=== PATIENT | female | born 1975 | race Caucasian/White ===

== ENCOUNTER 2021-11-10 20:17 | Emergency (ER) | payer OTHER ==
[2021-11-10 20:28] VITALS: BMI 41.1
[2021-11-10] MEDS ORDERED: SODIUM CHLORIDE 0.9% 500 ML INFUS.BAG IV ONE (20:58)
[2021-11-10] MEDS ORDERED: ONDANSETRON 4 MG/2 ML VIAL IVPUSH ONE (20:58)
[2021-11-10] MEDS ORDERED: FAMOTIDINE 20 MG/50 ML IVPB 20 MG/50 ML MG IVPB ONE ×2 (20:59→21:04)
[2021-11-10] MEDS ORDERED: ONDANSETRON 4 MG/2 ML VIAL ONE (21:04)
[2021-11-10] MEDS ORDERED: morphine CARPU-JECT 2 MG/1 ML DISP.SYRIN IVPUSH ONE (21:10)
[2021-11-10 21:36] LABS: BASO % 0.3 % (0-2.0); EOS % 1.2 % (0-4.5); HEMATOCRIT 39.7 % (32.4-45.2); HEMOGLOBIN 12.9 GM/dL (10.7-15.3); LYMPH % 23.8 % (8-40); MCH 26.7 pg (25.7-33.7); MCHC 32.5 g/dl (32.0-36.0); MEAN CELL VOLUME 82.1 fl (80-96); MEAN PLT VOLUME 7.7 fl (7.5-11.1); MONO % 6.5 % (3.8-10.2); NEUT % 68.2 % (42.8-82.8); PLATELET COUNT 349 10^3/uL (134-434); RBC 4.83 M/mm3 (3.60-5.2); RDW 17.7 % (11.6-15.6); WHITE BLOOD COUNT 11.5 K/mm3 (4.0-10.0)
[2021-11-10 21:41] LABS: EPI CELLS 12 /uL (0-25.1); HYALINE CASTS 4 /uL (0-3.1); PH,URINE 5.5 (5.0-8.0); URINE APPEARANCE CLEAR; URINE BACTERIA 20 /uL (0-1359); URINE BILIRUBIN NEGATIVE (NEGATIVE); URINE COLOR YELLOW; URINE GLUCOSE (UA) NEGATIVE (NEGATIVE); URINE KETONE 3+ (NEGATIVE); URINE LEUK ESTERASE NEGATIVE (NEGATIVE); URINE NITRITE NEGATIVE (NEGATIVE); URINE PROTEIN 1+ (NEGATIVE); URINE RBC 279 /uL (0-23.9); URINE UROBILINOGEN 0.2 mg/dL (0.2-1.0); URINE WBC 19 /uL (0-25.8)
[2021-11-10 21:50] LABS: CALCIUM 9.7 mg/dL (8.5-10.1)
[2021-11-10 21:51] LABS: ALBUMIN 3.8 g/dl (3.4-5.0); BLOOD UREA NITROGEN 13.3 mg/dL (7-18)
[2021-11-10 21:55] LABS: BILIRUBIN,TOTAL 0.4 mg/dL (0.2-1); TOT PROT 7.8 g/dl (6.4-8.2)
[2021-11-11 04:27] VITALS: BP 124/63; PULSE 75; TEMP 97.6
== END 2021-11-11 05:27 | disposition short-term general hospital (02) ==
LOC: JER 20:17
PROC: 3E033GC Introduction of Other Therapeutic Substance into Peripheral Vein, Percutaneous Approach (ICD-10-PCS; principal; 2021-11-10)
DX: R10.84 Generalized abdominal pain (principal); G89.18 Other acute postprocedural pain
CPT/HCPCS: 0241U-QW; 36415; 71046-TC-FY; 74177-TC; 80053; 81003; 83690; 84703; 85025; 93005; 93010; 99285-25